=== PATIENT | female | born 1980 | race Caucasian/White ===

== ENCOUNTER 2017-03-11 14:29 | Emergency (ER) | payer MEDICAID ==
[2017-03-11 16:17] LABS: BASOPHILS 0.2 % (0-2); EOSINOPHILS 1.2 % (0-7); HEMATOCRIT 46.3 % (36.0-48.0); IMMATURE GRANULOCYTES 0.2 % (0-5); LYMPHOCYTES 17.7 % (15-50); MCH 30.7 pg (26.0-34.0); MCHC 34.6 g/dL (31.0-37.0); MCV 88.9 fL (80.0-100.0); MEAN PLATELET VOLUME 9.9 fL (7.4-10.4); NEUTROPHILS 75.7 % (40-80); PLATELET COUNT 312 10x3/uL (130-400); RBC 5.21 10x6/uL (4.00-5.40); WBC 11.6 10x3/uL (4.8-10.8)
[2017-03-11 16:35] LABS: ALBUMIN 3.8 g/dL (3.4-5.0); ALKALINE PHOSPHATASE 88 U/L (46-116); ALT (SGPT) 24 U/L (10-68); AMYLASE - SERUM 64 U/L (25-115); CALC OSMOLALITY 279 mosm/kg (275-300); CALCIUM 9.8 mg/dL (8.5-10.1); CARBON DIOXIDE 27.7 mmol/L (21.0-32.0); CHLORIDE - SERUM 103 mmol/L (98-107); CREATININE - SERUM 0.6 mg/dL (0.6-1.3); GLUCOSE 99 mg/dL (74-106); LIPASE 122 U/L (73-393); POTASSIUM - SERUM 3.7 mmol/L (3.5-5.1); PROTEIN - SERUM 8.1 g/dL (6.4-8.2); SODIUM 139 mmol/L (136-145); UREA NITROGEN 17 mg/dL (7-18); eGFR NON AFRICAN AMERICAN > 90 mL/min (90-120)
[2017-03-11 18:48] LABS: APPEARANCE CLEAR (CLEAR); BILIRUBIN NEGATIVE (NEGATIVE); COLOR YELLOW (YELLOW); GLUCOSE NEGATIVE (NEGATIVE); KETONE NEGATIVE (NEGATIVE); LEUKOCYTE ESTERASE NEGATIVE (NEGATIVE); NITRITE NEGATIVE (NEGATIVE); PROTEIN NEGATIVE (NEGATIVE); SPECIFIC GRAVITY 1.025 (1.005-1.020); UROBILINOGEN NORMAL (NORMAL)
== END 2017-03-11 20:05 | disposition home or self-care (01) ==
LOC: D.ER 14:29
PROVIDERS: Family Medicine
DX: K80.50 Calculus of bile duct without cholangitis or cholecystitis without obstruction (principal); R10.9 Unspecified abdominal pain; R63.0 Anorexia; R50.9 Fever, unspecified; R11.2 Nausea with vomiting, unspecified; R45.1 Restlessness and agitation; F41.9 Anxiety disorder, unspecified; F17.200 Nicotine dependence, unspecified, uncomplicated

== ENCOUNTER 2017-04-18 07:25 | Day surgery (SDC) | payer MEDICAID ==
[2017-04-15 09:57] LABS: HEMATOCRIT 43.1 % (36.0-48.0); HEMOGLOBIN 14.7 g/dL (12-16); MCH 29.9 pg (26.0-34.0); MCHC 34.1 g/dL (31.0-37.0); MCV 87.8 fL (80.0-100.0); MEAN PLATELET VOLUME 9.6 fL (7.4-10.4); RBC 4.91 10x6/uL (4.00-5.40); WBC 7.6 10x3/uL (4.8-10.8)
[~2017-04-18] VITALS: Ht 154.9 cm; Wt 82.6 kg
[2017-04-18 07:43] VITALS: BP 123/64; Ht 154.9 cm; Wt 82.6 kg
[2017-04-18 08:08] LABS: HCG URINE NEGATIVE (NEGATIVE)
[2017-04-18] MEDS ORDERED: HYDROCODON-ACE1 EAC7 PO (10:11)
--- NOTE | 2017-04-18 12:27 | NUR ---
1220 CALLED TO PT'S ROOM, PT. PLAYING WITH HER BABY IN BED AND DRESSING STARTED TO BLEED THRU STERI STRIP, GAUZE TO SITE, ICE CAP TO SITE. RECOMMENDED TO NOT LIFT BABY AT PRESENT TIME.
--- NOTE | 2017-04-18 21:22 | OP ---
PATIENT NAME: HI HERRERA MEDICAL RECORD: [id number] :76 LOCATION:D[facility] ADMISSION DATE: SURGEON: SHANTELLE JUSTICE MD DATE OF OPERATION: 04/18/2017 SURGEON: Shantelle Justice MD PREOPERATIVE DIAGNOSES: 1. Cholelithiasis obstruction. 2. Right upper quadrant pain. POSTOPERATIVE DIAGNOSES: 1. Cholelithiasis obstruction. 2. Right upper quadrant pain. PROCEDURE PERFORMED: Laparoscopic cholecystectomy. ANESTHESIA: General. COMPLICATIONS: None. SPECIMENS: Gallbladder. Case was clean contaminated. ESTIMATED BLOOD LOSS: 30 cc. OPERATIVE COURSE: After consent was obtained, the patient was taken to the operating room and placed in the supine position on the operating table. Next, general anesthesia was given via endotracheal intubation. After the abdomen was prepped and draped in typical sterile fashion, local anesthetic was injected just above the umbilicus. A stab incision was made with a 15-blade scalpel. Using a 5-mm bladeless optical trocar, the abdomen was entered under direct laparoscopic vision. Adequate pneumoperitoneum was achieved. The abdominal cavity was inspected, no evidence of bowel injury. No evidence of bleeding. At this time, all remaining trocars were placed after the administration of local anesthetic, two 5-mm trocars in the right upper quadrant and 11-mm trocar in the subxiphoid position. The patient was placed in the steep reverse Trendelenburg position. The fundus of the gallbladder was grasped and retracted cephalad. The infundibulum was grasped and retracted laterally. The peritoneum was incised using electrocautery. Blunt dissection was then performed with the [place] dissector until the critical view was obtained. The cystic duct lateral, cystic artery medial, liver in the posterior window. A 3 clips were placed in the proximal cystic duct, 1 clip distal, 2 clips were placed in the proximal cystic artery. The duct and artery were then transected with laparoscopic Metzenbaum scissors. The remaining portion of the gallbladder was then dissected off the liver bed using electrocautery. Once complete, it was grasped with the tenaculum and removed through the 11-mm trocar and sent for permanent pathology. Next, the operative site was copiously irrigated and suctioned. Careful attention was paid to hemostasis, which was obtained in the liver bed using electrocautery. Again, the right upper quadrant was copiously irrigated and suctioned. The operative site was inspected. There were [address] in the duct, [address] in the artery. No evidence of bowel injury. No evidence of bleeding, no evidence of bile leak. The abdominal cavity was inspected. No evidence of bowel injury. No evidence of bleeding. OPERATIVE REPORT [id number] HI HERRERA At this time, all remaining instruments removed. The abdomen was desufflated. Trocars removed. Skin was closed with 4-0 Monocryl, Mastisol and Steri-Strips. At the end of the case, all needle and instrument counts were correct. No complications occurred. The patient was extubated and transferred to the PACU in stable condition. TRANSINT:[id number] Voice Confirmation ID: [id number] DOCUMENT ID: [id number] SHANTELLE JUSTICE MD at 2122 CC: [id number] DICTATION DATE: 04/18/17 1010 [employer] SUPERVISOR: 04/18/17 1747 [facility] 04/18/17 [id number] [place] [address]
== END 2017-04-18 12:53 | disposition home or self-care (01) ==
LOC: D.OPS 07:25 → D.PAN 09:30 → D.OPS 12:53
PROVIDERS: Anesthesiology; Surgery
DX: K80.21 Calculus of gallbladder without cholecystitis with obstruction (principal); R10.11 Right upper quadrant pain; F17.200 Nicotine dependence, unspecified, uncomplicated; I10 Essential (primary) hypertension; K21.9 Gastro-esophageal reflux disease without esophagitis; E66.9 Obesity, unspecified; Z68.34 Body mass index [BMI] 34.0-34.9, adult; Z01.812 Encounter for preprocedural laboratory examination

== ENCOUNTER 2017-05-18 19:17 | Emergency (ER) | payer MEDICAID ==
[2017-04-18 07:43] VITALS: BMI 34.4
[~2017-05-18 19:17] MED LIST: HYDROCODON-ACE1 EAC7 PO
[2017-05-18 20:41] LABS: BASOPHILS 0.2 % (0-2); EOSINOPHILS 2.5 % (0-7); HEMATOCRIT 41.7 % (36.0-48.0); IMMATURE GRANULOCYTES 0.2 % (0-5); LYMPHOCYTES 30.8 % (15-50); MCHC 33.6 g/dL (31.0-37.0); MCV 89.3 fL (80.0-100.0); MEAN PLATELET VOLUME 9.9 fL (7.4-10.4); MONOCYTES 8.4 % (2-11); NEUTROPHILS 57.9 % (40-80); PLATELET COUNT 266 10x3/uL (130-400); RBC 4.67 10x6/uL (4.00-5.40); RDW 13.3 % (11.5-14.5); WBC 10.6 10x3/uL (4.8-10.8)
[2017-05-18 20:51] LABS: APPEARANCE CLEAR (CLEAR); COLOR YELLOW (YELLOW); NITRITE POSITIVE (NEGATIVE)
[2017-05-18 20:52] LABS: BILIRUBIN NEGATIVE (NEGATIVE); EPITHELIAL CELLS 0-5 /hpf (0-5); GLUCOSE NEGATIVE (NEGATIVE); KETONE NEGATIVE (NEGATIVE); PROTEIN TRACE mg/dL (NEGATIVE); RED CELLS - URINE 0-5 /hpf (0-5); UROBILINOGEN NORMAL (NORMAL)
[2017-05-18 20:53] LABS: BACTERIA MODERATE /hpf (NONE SEEN)
[2017-05-18 21:00] LABS: ALBUMIN 3.4 g/dL (3.4-5.0); ALKALINE PHOSPHATASE 108 U/L (46-116); ALT (SGPT) 47 U/L (10-68); BILIRUBIN - TOTAL 0.11 mg/dL (0.2-1.3); CALC OSMOLALITY 275 mosm/kg (275-300); CALCIUM 8.6 mg/dL (8.5-10.1); CARBON DIOXIDE 25.9 mmol/L (21.0-32.0); CHLORIDE - SERUM 105 mmol/L (98-107); CREATININE - SERUM 0.8 mg/dL (0.6-1.3); GLUCOSE 101 mg/dL (74-106); POTASSIUM - SERUM 4.5 mmol/L (3.5-5.1); PROTEIN - SERUM 7.5 g/dL (6.4-8.2); SODIUM 137 mmol/L (136-145); UREA NITROGEN 17 mg/dL (7-18); eGFR NON AFRICAN AMERICAN 85 mL/min (90-120)
== END 2017-05-18 21:37 | disposition home or self-care (01) ==
LOC: D.ER 19:17
PROVIDERS: Family Medicine
DX: N39.0 Urinary tract infection, site not specified (principal)

== ENCOUNTER 2017-11-24 18:35 | Emergency (ER) | payer MEDICAID ==
[2017-04-18 07:43] VITALS: BMI 34.4
[2017-11-24 19:50] LABS: APPEARANCE CLEAR (CLEAR); BASOPHILS 0.4 % (0-2); BILIRUBIN NEGATIVE (NEGATIVE); COLOR YELLOW (YELLOW); EOSINOPHILS 1.4 % (0-7); GLUCOSE NEGATIVE (NEGATIVE); HEMATOCRIT 43.6 % (36.0-48.0); HEMOGLOBIN 14.9 g/dL (12-16); IMMATURE GRANULOCYTES 0.2 % (0-5); KETONE NEGATIVE (NEGATIVE); LYMPHOCYTES 32.2 % (15-50); MCH 30.1 pg (26.0-34.0); MCHC 34.2 g/dL (31.0-37.0); MCV 88.1 fL (80.0-100.0); MONOCYTES 5.6 % (2-11); NEUTROPHILS 60.2 % (40-80); NITRITE NEGATIVE (NEGATIVE); PLATELET COUNT 290 10x3/uL (130-400); PROTEIN NEGATIVE (NEGATIVE); RBC 4.95 10x6/uL (4.00-5.40); SPECIFIC GRAVITY 1.015 (1.005-1.020); UROBILINOGEN NORMAL (NORMAL); WBC 8.5 10x3/uL (4.8-10.8)
[2017-11-24 19:51] LABS: HCG URINE NEGATIVE (NEGATIVE)
[2017-11-24 20:05] LABS: ALBUMIN 3.3 g/dL (3.4-5.0); ALKALINE PHOSPHATASE 92 U/L (46-116); ALT (SGPT) 24 U/L (10-68); AMYLASE - SERUM 55 U/L (25-115); BILIRUBIN - TOTAL 0.19 mg/dL (0.2-1.3); CALC OSMOLALITY 278 mosm/kg (275-300); CALCIUM 9.1 mg/dL (8.5-10.1); CHLORIDE - SERUM 103 mmol/L (98-107); CREATININE - SERUM 0.5 mg/dL (0.6-1.3); GLUCOSE 100 mg/dL (74-106); LIPASE 115 U/L (73-393); POTASSIUM - SERUM 3.5 mmol/L (3.5-5.1); PROTEIN - SERUM 7.9 g/dL (6.4-8.2); SODIUM 141 mmol/L (136-145); UREA NITROGEN 8 mg/dL (7-18); eGFR NON AFRICAN AMERICAN > 90 mL/min (90-120)
== END 2017-11-24 21:25 | disposition home or self-care (01) ==
LOC: D.ER 18:35
PROVIDERS: Emergency Medicine
DX: K42.9 Umbilical hernia without obstruction or gangrene (principal)